=== PATIENT | female | born 1965 | race Caucasian/White ===

== ENCOUNTER 2024-05-08 13:13 | Emergency (ER) | payer OTHER ==
[~2024-05-08] VITALS: Ht 160 cm; Wt 68.0 kg
[~2024-05-08 13:13] MED LIST: ACYC200 PO; ACYC5TO15G TOP; ACYC800 PO; ALBIPROI INH; ALBU90OI INH; BENZ100A PO; BUTASPCAF; BUTASPCAF PO; CEFU250 PO; CEFU500 PO; CEPH500 PO; CLIN300 PO; CODACE30 PO; CODBUTACEC; CODBUTACEC PO; CODBUTASA; CODBUTASA PO; CYCL10 PO; CYMBALTA; DIAZ10; DIAZ5; DIPH50 PO; DOXY100; EFFEXOR; ERYSTE250 PO; ERYT500 PO; ESCI10; FERROUS SULFATE; GENT.3OPO OS; GENT.3OPSA OS; HYDACE5 PO; HYDPAM50 PO; IBUP800 PO; NAPR500 PO; NAPR550 PO; PHENA200 PO; POLY17UD PO; POTCHL20ER PO; PRED10 PO; PREG75 PO; PROCODE120 PO; PROM25; PROM25 PO; RANI150 PO; RXNAPNA550 PO; RXTRAM50 PO; SULTRIDS PO; SULTRISS PO; TRAACE PO; TRAM50 PO; UNK ANTIDEPRESSANT; VALA500; VALIUM; VENL75; VENL75ER; [UNRECOGNIZED DRUG - REMARK]
[2024-05-08 14:34] LABS: BASOPHILS ABSOLUTE AUTO 0.02 K/mm3 (0.00-0.23); BASOPHILS PERCENT AUTO 0 % (0-2); EOSINOPHILS ABSOLUTE AUTO 0.12 K/mm3 (0.00-0.68); EOSINOPHILS PERCENT AUTO 2 % (0-6); Hematocrit 34.7 % (33.0-51.0); Hemoglobin 11.4 g/dL (11.5-16.0); IMMATURE GRAN ABSOLUTE AUTO 0.01 K/mm3 (0.00-0.10); IMMATURE GRAN PERCENT AUTO 0 % (0-1); LYMPHOCYTES ABSOLUTE AUTO 2.17 K/mm3 (0.84-5.20); LYMPHOCYTES PERCENT AUTO 37 % (21-46); MONOCYTES ABSOLUTE AUTO 0.31 K/mm3 (0.16-1.47); MONOCYTES PERCENT AUTO 5 % (4-13); Mean Corpuscular HGB 31.1 pg (26.0-34.0); Mean Corpuscular HGB Conc 32.9 g/dL (31.5-36.5); Mean Corpuscular Volume 95 fL (80-100); Mean Platelet Volume 9.4 fL (9.1-12.4); NEUTROPHILS PERCENT AUTO 55 % (41-73); Platelet Count 213 K/mm3 (150-400); RDW Coefficient Variation 12.5 % (11.7-14.2); RDW Standard Deviation 43.8 fL (35.1-46.3); Red Blood Cell Count 3.66 M/mm3 (3.80-5.20); White Blood Cell Count 5.83 K/mm3 (4.00-11.30)
[2024-05-08 15:04] LABS: Albumin, Blood 3.4 g/dL (3.4-5.0); Bilirubin, Total 0.3 mg/dL (0.1-1.0); Bun/Creatinine Ratio 20.1 (12.0-20.0); Calcium, Blood 8.6 mg/dL (8.5-10.1); Creatinine, Blood 0.8 mg/dL (0.40-1.00); Globulin, Blood 3.3 g/dL (2.2-4.0); Total Protein, Blood 6.7 g/dL (6.4-8.2)
[2024-05-08 15:04] LABS: Influenza A, PCR NEGATIVE (NEGATIVE); Influenza B, PCR NEGATIVE (NEGATIVE); Resp Syncytial Virus, PCR NEGATIVE (NEGATIVE); SARS-Cov-2 (COVID-19) PCR, MMC NEGATIVE (NEGATIVE)
== END 2024-05-08 15:37 | disposition home or self-care (01) ==
LOC: ER 13:13
PROVIDERS: Physician Assistant
DX: J06.9 Acute upper respiratory infection, unspecified (principal)
CPT/HCPCS: 0241U; 36415; 71046; 80053; 85025; 99283-25